=== PATIENT | female | born 1945 | race Caucasian/White ===

== ENCOUNTER 2019-06-18 11:50 | Inpatient (IN) | payer OTHER ==
[~2019-06-18] VITALS: Ht 165.1 cm; Wt 52.8 kg
[2019-06-18 13:34] LABS: BASOPHIL % 0.2 % (0-2); PLATELET COUNT 285 x10^3mcL (130-400); RED CELL DISTRIBUTION WIDTH 12.8 % (11.5-14.5)
[2019-06-18 13:54] LABS: CALCIUM 8.7 mg/dL (8.5-10.1); CARBON DIOXIDE 28.8 mmol/L (21-32); CHLORIDE SERUM 101 mmol/L (98-107); CREATININE SERUM 0.6 mg/dL (0.6-1.0); GLUCOSE SERUM 96 mg/dL (74-106); POTASSIUM SERUM 3.9 mmol/L (3.5-5.1); SODIUM SERUM 137 mmol/L (136-145)
[2019-06-18 13:58] LABS: ALKALINE PHOSPHATASE 71 U/L (46-116); ALT/SGPT 20 U/L (14-59); AST/SGOT 19 U/L (15-37); BILIRUBIN TOTAL 1.2 mg/dL (0.20-1.00); TOTAL PROTEIN, SERUM 6.9 g/dL (6.4-8.2)
[2019-06-18 13:59] LABS: ALBUMIN 2.8 g/dL (3.4-5.0)
[2019-06-18 14:25] LABS: microscopic required? YES; urine erythrocyte 1+ (NEGATIVE)
[2019-06-18] MEDS ORDERED: VALIUM2 MG PO (17:49)
[2019-06-18] MEDS ORDERED: SEROQUEL50 M1 PO (17:49)
[2019-06-18 18:50] LABS: CHOLESTEROL/HDL RATIO 2.8
[2019-06-18 19:02] LABS: T3 TOTAL 0.61 ng/mL
[2019-06-18 19:03] LABS: FREE T4 1.1 ng/dL (0.76-1.46); FREE THYROXINE INDEX 2.5 ug/dL (1.4-4.5); T4(THYROXINE) 7.5 ug/dL (4.7-13.3)
[2019-06-18 19:59] VITALS: BP 130/60
[2019-06-18 20:08] VITALS: Ht 165.1 cm; Wt 52.8 kg
[2019-06-19 06:22] VITALS: BP 116/42
[2019-06-19 06:42] LABS: PLATELET COUNT 240 x10^3mcL (130-400); RED CELL DISTRIBUTION WIDTH 13.2 % (11.5-14.5)
[2019-06-19 06:52] LABS: BASOPHIL % 0 % (0-2)
[2019-06-19 07:17] LABS: CALCIUM 7.9 mg/dL (8.5-10.1); CHLORIDE SERUM 101 mmol/L (98-107); CREATININE SERUM 0.5 mg/dL (0.6-1.0); GLUCOSE SERUM 87 mg/dL (74-106); MAGNESIUM 1.9 mg/dL (1.8-2.4); PHOSPHOROUS 3.3 mg/dL (2.5-4.9); SODIUM SERUM 136 mmol/L (136-145)
[2019-06-19 08:06] VITALS: BP 117/49
[2019-06-19 13:50] VITALS: BP 117/47
[2019-06-19 16:50] VITALS: BP 116/50
[2019-06-20 01:42] VITALS: BP 117/52
[2019-06-20 06:24] LABS: BASOPHIL % 0.1 % (0-2); PLATELET COUNT 282 x10^3mcL (130-400); RED CELL DISTRIBUTION WIDTH 12.5 % (11.5-14.5)
[2019-06-20 06:39] VITALS: BP 114/59
[2019-06-20 08:15] LABS: CALCIUM 8.2 mg/dL (8.5-10.1); CARBON DIOXIDE 26.1 mmol/L (21-32); CHLORIDE SERUM 104 mmol/L (98-107); CREATININE SERUM 0.5 mg/dL (0.6-1.0); GLUCOSE SERUM 91 mg/dL (74-106); POTASSIUM SERUM 3.6 mmol/L (3.5-5.1); SODIUM SERUM 138 mmol/L (136-145)
[2019-06-20 09:36] VITALS: BP 115/59
[2019-06-20 16:05] VITALS: BP 115/40
[2019-06-20 21:53] VITALS: BP 98/78
[2019-06-21 06:38] VITALS: BP 116/60
[2019-06-21 06:50] LABS: BASOPHIL % 0.2 % (0-2); PLATELET COUNT 326 x10^3mcL (130-400)
[2019-06-21 07:06] LABS: CALCIUM 7.9 mg/dL (8.5-10.1); CARBON DIOXIDE 26.8 mmol/L (21-32); CHLORIDE SERUM 106 mmol/L (98-107); CREATININE SERUM 0.6 mg/dL (0.6-1.0); GLUCOSE SERUM 88 mg/dL (74-106); MAGNESIUM 1.8 mg/dL (1.8-2.4); POTASSIUM SERUM 4.1 mmol/L (3.5-5.1); SODIUM SERUM 141 mmol/L (136-145)
[2019-06-21 09:00] VITALS: BP 112/58
[2019-06-21 17:03] VITALS: BP 137/75
[2019-06-21 20:40] VITALS: BP 132/61
[2019-06-22 05:34] VITALS: BP 146/62
[2019-06-22 06:38] LABS: BASOPHIL % 0.2 % (0-2); PLATELET COUNT 382 x10^3mcL (130-400); RED CELL DISTRIBUTION WIDTH 12.9 % (11.5-14.5)
[2019-06-22 07:08] LABS: CALCIUM 8.1 mg/dL (8.5-10.1); CARBON DIOXIDE 28.5 mmol/L (21-32); CHLORIDE SERUM 104 mmol/L (98-107); CREATININE SERUM 0.5 mg/dL (0.6-1.0); GLUCOSE SERUM 92 mg/dL (74-106); POTASSIUM SERUM 3.7 mmol/L (3.5-5.1); SODIUM SERUM 139 mmol/L (136-145)
[2019-06-22 08:39] VITALS: BP 114/55
[2019-06-22 17:19] VITALS: BP 130/55
[2019-06-22 21:46] VITALS: BP 126/60
[2019-06-23 05:55] VITALS: BP 132/60
[2019-06-23 06:36] LABS: BASOPHIL % 0.4 % (0-2); RED CELL DISTRIBUTION WIDTH 13.2 % (11.5-14.5)
[2019-06-23 06:47] LABS: PLATELET COUNT 454 x10^3mcL (130-400)
[2019-06-23 06:57] LABS: CALCIUM 8.5 mg/dL (8.5-10.1); CARBON DIOXIDE 29.2 mmol/L (21-32); CHLORIDE SERUM 104 mmol/L (98-107); CREATININE SERUM 0.6 mg/dL (0.6-1.0); GLUCOSE SERUM 94 mg/dL (74-106); POTASSIUM SERUM 4.2 mmol/L (3.5-5.1); SODIUM SERUM 141 mmol/L (136-145)
[2019-06-23 08:55] VITALS: BP 123/55
[2019-06-23 09:05] VITALS: BP 123/55
[2019-06-23] MEDS ORDERED: CIPRO500 MG PO (10:11)
[2019-06-23 12:09] VITALS: BP 123/55
== END 2019-06-23 13:49 | disposition hospice, home (50) | DRG 193 ==
LOC: ED 11:50 → MU 18:10
PROVIDERS: Student in an Organized Health Care Education/Training Program; ADMIT General Practice
DX: J18.9 Pneumonia, unspecified organism (principal); G93.41 Metabolic encephalopathy; N39.0 Urinary tract infection, site not specified; E44.0 Moderate protein-calorie malnutrition; B96.20 Unspecified Escherichia coli [E. coli] as the cause of diseases classified elsewhere; G30.9 Alzheimer's disease, unspecified; F02.80 Dementia in other diseases classified elsewhere, unspecified severity, without behavioral disturbance, psychotic disturbance, mood disturbance, and anxiety; K57.90 Diverticulosis of intestine, part unspecified, without perforation or abscess without bleeding; K74.60 Unspecified cirrhosis of liver; M54.5 Low back pain; L40.9 Psoriasis, unspecified; F41.9 Anxiety disorder, unspecified; F12.10 Cannabis abuse, uncomplicated; Z68.21 Body mass index [BMI] 21.0-21.9, adult; Z85.3 Personal history of malignant neoplasm of breast; Z86.73 Personal history of transient ischemic attack (TIA), and cerebral infarction without residual deficits
CPT/HCPCS: 84439; 92526-GN; 92610-GN; 97116-GP; 97530-GP; G0378; J0456; J0696; J1885; J2060; J7030; J7050; J7060; J7620; Q0092; Q9967